=== PATIENT | male | born 1970 | race African-American/Black ===

== ENCOUNTER 2025-08-19 17:03 | Inpatient (IN) | payer SELFPAY ==
[~2025-08-19] VITALS: Ht 180.3 cm; Wt 88.0 kg
[2025-08-19 17:06] VITALS: O2SAT 94
[2025-08-19 17:47] LABS: BASOPHILS % 0.5 % (0.0-2.0); EOSINOPHILS % 0.6 % (0.0-5.0); HEMATOCRIT. 38.5 % (42.0-52.0); HEMOGLOBIN. 12.2 g/dL (14.0-18.0); LYMPHOCYTES % 42.3 % (20.0-50.0); MEAN PLATELET VOLUME 7.2 fl (7.4-10.4); MONOCYTES % 8.7 % (2.0-8.0); NEUTROPHILS % 47.9 % (40.0-76.0); PLATELET 264 x1000/uL (130-400); RED BLOOD CELL COUNT 4.61 mill/uL (4.7-6.1); RED CELL DISTRIBUTION WIDTH 15.6 % (11.6-14.6)
[2025-08-19 18:04] LABS: CREATININE 1.1 mg/dL (0.6-1.3); UREA NITROGEN BLOOD 10 mg/dL (9-23)
[2025-08-19 18:05] LABS: TROPONIN I HIGH SENSITIVITY < 4 ng/L (3.0-53)
[2025-08-19 18:06] LABS: ASPARTATE AMINOTRANSFERASE 14 IU/L (<34); BILIRUBIN DIRECT 0.2 mg/dL (<=3.0); BILIRUBIN TOTAL 0.6 mg/dL (0.1-1.0); PROTEIN TOTAL 7.1 g/dL (6.0-8.3)
[2025-08-19] MEDS: TETANUS, DIPHTHERIA, PERTUSSIS VAC/PF 0.5ML (>10YR OLD) IM ONE (18:20)
[2025-08-19] MEDS: KETOROLAC 15MG/ML VIAL IM ONE (18:20)
[2025-08-19 20:00] LABS: TROPONIN I HIGH SENSITIVITY 6 ng/L (3.0-53)
[2025-08-20 00:15] VITALS: BP 115/66; PULSE 59; RESP 16; TEMP 36.5848
[2025-08-20] MEDS ORDERED: MORPHINE SULFATE 2 MG/ML INJ (NOT FOR IM USE) IV PRN (01:00)
[2025-08-20] MEDS ORDERED: CLONIDINE 0.1MG TABLET PO PRN (01:00)
[2025-08-20] MEDS ORDERED: ONDANSETRON HCL 4MG/2ML INJ IV PRN (01:00)
[2025-08-20] MEDS ORDERED: ZOLPIDEM TARTRATE 5MG TABLET PO PRN (01:00)
[2025-08-20] MEDS ORDERED: ACETAMINOPHEN 325MG TABLET PO PRN (01:00)
[2025-08-20] MEDS ORDERED: MAGNESIUM/ALUMINUM HYDROXIDE/SIMETHICONE 30ML UDC PO PRN (01:00)
[2025-08-20] MEDS ORDERED: HYDROCODONE/ACETAMINOPHEN 5/325MG TABLET PO PRN (01:00)
[2025-08-20] MEDS ORDERED: NALOXONE HCL 0.4MG/ML VIAL IV PRN (01:30)
[2025-08-20] MEDS: SODIUM CHLORIDE 0.9% 1,000 ML IV SCH (02:15)
[2025-08-20 04:00] VITALS: BP 96/58; PULSE 63; RESP 17; TEMP 37; O2SAT 96
[2025-08-20] MEDS ORDERED: ENOXAPARIN 40MG/0.4ML SYR SUBCUT SCH (09:00)
[2025-08-20] MEDS ORDERED: PANTOPRAZOLE SODIUM 40 MG/VIAL IV SCH (09:00)
[2025-08-20] MEDS: FOLIC ACID 1MG TABLET PO SCH (09:11)
[2025-08-20] MEDS: MULTIVITAMINS,THER W-MINERALS TABLET PO SCH (09:12)
[2025-08-20] MEDS: THIAMINE HCL 100MG TABLET PO SCH (09:12)
== END 2025-08-20 09:30 | disposition left against medical advice (07) | DRG 204 ==
LOC: ER 17:03 → EDBEDREQTM 23:18 → EDBEDREQ 23:18 → ENRESERV 23:32 → 5WST 08-20 00:08
PROVIDERS: ADMIT Internal Medicine; ATTEND Internal Medicine
DX: R55 Syncope and collapse (principal); F19.90 Other psychoactive substance use, unspecified, uncomplicated; I10 Essential (primary) hypertension; Z53.29 Procedure and treatment not carried out because of patient's decision for other reasons; M54.2 Cervicalgia; R51.9 Headache, unspecified
CPT/HCPCS: 36415; 70486; 71045; 80048; 80076; 80320; 84484; 85025; 90715; 93005; 99285; J1885; J2470; G0480